=== PATIENT | male | born 1990 | race Caucasian/White ===

== ENCOUNTER 2018-09-09 08:13 | Emergency (ER) | payer SELFPAY ==
[~2018-09-09] VITALS: Ht 177.8 cm; Wt 90.7 kg
--- NOTE | 2018-09-09 08:21 | NUR ---
PT TO BED 4 VIA WHEELCHAIR
[2018-09-09 08:22] VITALS: BP 153/92
--- NOTE | 2018-09-09 08:24 | NUR ---
XRAY AT BEDSIDE
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
[2018-09-09] MEDS ORDERED: KETOROLAC 60 MG/2 ML VIAL IM ONE (08:35)
--- NOTE | 2018-09-09 10:05 | NUR ---
Patient being evaluated by physician at bedside.
[2018-09-09 10:35] VITALS: BP 139/89
== END 2018-09-09 10:36 | disposition home or self-care (01) ==
LOC: MED 08:13
DX: S82.831A Other fracture of upper and lower end of right fibula, initial encounter for closed fracture (principal); W10.8XXA Fall (on) (from) other stairs and steps, initial encounter; Y93.89 Activity, other specified; Y92.89 Other specified places as the place of occurrence of the external cause; Y99.8 Other external cause status
CPT/HCPCS: 29515; 73610; 96372; 99283; J1885; Q0092